=== PATIENT | female | born 2000 | race Asian ===

== ENCOUNTER 2021-06-04 06:21 | Outpatient (REF) | payer OTHER, SELFPAY ==
[2021-06-04 07:02] LABS: MANUAL DIFF FLAG NO
[2021-06-04 07:10] LABS: Basophils Percent Auto 0.5 % (0-2); Eosinophils Absolute Auto 0.2 X10*3/uL (0.0-0.4); Eosinophils Percent Auto 1.9 % (0-4); Hematocrit 38.4 % (37-47); Imm Gran Abs Auto 0.02 X10*3/uL (0.00-0.03); Imm Gran Pct Auto 0.2 % (0.0-0.4); Lymphocytes Absolute Auto 2.9 X10*3/uL (1.2-4.9); Lymphocytes Percent Auto 32.1 % (20-40); Mean Corpuscular HGB Conc 31.3 g/dl (31.0-35.0); Mean Corpuscular Volume 86.5 fL (80-98); Monocytes Absolute Auto 0.6 X10*3/uL (0.1-1.2); Monocytes Percent Auto 6.3 % (2-11); Neutrophils Absolute Auto 5.2 X10*3/uL (2.0-8.3); Platelet Count 332 X10*3/uL (160-400); Red Blood Count 4.44 X10*6/uL (4.20-5.50); Red Cell Distribution Width 12.6 % (11.0-16.0); White Blood Count 8.9 X10*3/uL (4.8-10.8)
[2021-06-04 07:27] LABS: Alanine Aminotransferase 12 U/L (0-31); Albumin Level 4.3 g/dL (3.5-5.0); Alkaline Phosphatase 37 U/L (39-117); Anion Gap 14 (12-20); Aspartate Amino Transferase 16 U/L (5-31); Bilirubin Total 0.5 mg/dL (0.0-1.0); Blood Urea Nitrogen 8 mg/dL (9-16); Calcium 9.7 mg/dL (8.4-10.2); Carbon Dioxide 23 mmol/L (22-29); Chloride 107 mmol/L (96-108); Cholesterol 159 mg/dL; Estimated Glomerular Filt Rate > 60; Glucose Random 93 mg/dL (60-115); HDL Cholesterol 51 mg/dL; LDL Cholesterol Calculated 99 mg/dl; Potassium 4.7 mmol/L (3.3-5.1); Sodium 139 mmol/L (135-145); Total Protein 7.4 g/dL (6.5-8.0); Triglycerides 47 mg/dL
[2021-06-04 07:51] LABS: Free T4 (Free Thyroxine) 0.77 ng/dL (0.71-1.85); HCG Quantitative < 2 mIU/mL; Thyroid Stimulating Hormone 1.91 uIU/mL (0.32-4.0)
[2021-06-04 09:11] LABS: Folate 17.8 ng/mL (> or = 4.0); Vitamin B12 261 pg/mL (200-900)
== END 2021-06-04 06:22 | disposition home or self-care (01) ==
LOC: HO.LAB 06:21
PROVIDERS: PCP Internal Medicine; Visit Provider Internal Medicine
DX: N91.1 Secondary amenorrhea (principal); E04.9 Nontoxic goiter, unspecified; E78.00 Pure hypercholesterolemia, unspecified
CPT/HCPCS: 36415; 80053; 80061; 82607; 82746; 84439; 84443; 84702; 85025

== ENCOUNTER 2021-06-05 11:28 | Outpatient (REF) | payer OTHER, SELFPAY ==
--- NOTE | ~2021-06-05 | US_ITS ---
EXAMINATION: US THYROID CLINICAL INFORMATION: Nontoxic goiter, unspecified. COMPARISON: None TECHNIQUE: Linear transducer grayscale and color Doppler examination with attention to the region of the thyroid. FINDINGS: SIZE: Measurements of the thyroid lobes and nodules are given in sagittal, anteroposterior and transverse dimensions respectively. Right Thyroid Lobe: 4.3 x 1.4 x 1.4 cm, volume 4.21 mL. Parenchyma: The gland echotexture is homogeneous. Thyroid vascularity is normal. Left Thyroid Lobe: 3.8 x 1.2 x 1.3 cm, volume 3.05 mL. Parenchyma: The gland echotexture is homogeneous. Thyroid vascularity is normal. Isthmus: 0.2 cm in maximum AP dimension. No focal thyroid nodule is seen. NODES: No lymphadenopathy is seen in the tissue surrounding the thyroid gland. US/US thyroid IMPRESSION: Normal thyroid ultrasound.
== END 2021-06-05 11:29 | disposition home or self-care (01) ==
LOC: HO.HMGCX 11:28
PROVIDERS: Visit Provider Internal Medicine
DX: E04.9 Nontoxic goiter, unspecified (principal)
CPT/HCPCS: 76536

== ENCOUNTER 2023-05-18 14:33 | Outpatient (REF) | payer OTHER, SELFPAY | END 2023-05-18 14:34 | disposition home or self-care (01) | LOC: HO.XRAY 14:33 | PROVIDERS: PCP Internal Medicine; Visit Provider Internal Medicine | DX: M54.9 Dorsalgia, unspecified (principal) | CPT/HCPCS: 71046 ==

== ENCOUNTER 2024-02-17 15:35 | Outpatient (AMB) | payer OTHER, SELFPAY ==
[2024-02-17 16:12] VITALS: BP 100/64; PULSE 93; TEMP 37.7; O2SAT 100
--- NOTE | 2024-02-17 16:12 | AM.OFFWIN_ITS ---
Intake Vital Signs 3 02/17/24 16:12 Height 5 ft BP 100/64 Blood Pressure Location Lt brachial Position Sitting Pulse 93 Pulse Source Pulse Oximeter Temp 99.9 F Temp Source Oral Pulse Oximetry (%) 100 Oxygen Delivery Method Room Air Intake Visit Reasons: EP Cough, dizzy, nausea, migraine Intake Note: pt is here for cough and congestion since this past weekend and has had migraine and has had nausea and dizzy and trouble sleeping Patient Tobacco Use Status: Never used Tobacco Allergies No Known Allergies Allergy (Verified 02/17/24 16:14) Do you need a note to return to daycare/school/sports/work: Yes HPI HPI Comments 2 History of Present Illness0 Details 24 y/o female patient who presents to [facility] in clinic with c/o persistent headaches since the weekend. Headaches are associated with Nausea, light and sound sensitivity. H/o chronic Migraine headaches, takes Sumatriptan 100 mg PRN. She reports the medication has not helped. She does have an Upcoming Appointment with Neurology in June. During the neck examination, Pt was noticed to have a small Goiter. Pt reports having Thyroid U/S 2020 with benign findings. FOR[facility]LY [facility], [facility] Surgical History (Updated 05/27/21 @ 16:05 by Lupe Granado MD) [place] teeth extracted Family History (Updated 05/18/23 @ 14:06 by Lupe Granado MD) Father Diabetes Hypertension Mother No problems noted. Brother No problems noted. Paternal Grandmother No problems noted. Social History (Updated 05/18/23 @ 14:07 by Lupe Granado MD) Housing: Apartment Alcohol intake: current Patient Tobacco Use Status: Never used Tobacco e-Cigarette/Vaping Use: Never Used Second Hand Smoke Exposure: No service: No Current occupational status: employed Current occupational exposures/hazards: No Cognitive needs: No Hearing needs: No Vision needs: No Review of Systems Const All systems reviewed & are unremarkable except as noted in HPI and below Physical Exam Vital Signs: Last Vital Signs Temp 99.9 F 02/17/24 16:12 Pulse 93 02/17/24 16:12 BP 100/64 02/17/24 16:12 Pulse Ox 100 02/17/24 16:12 Oxygen Delivery Method Room Air 02/17/24 16:12 Const General: comfortable and no acute distress Orientation/consciousness: patient oriented x3 HEENT Head: Yes normocephalic Ears: external ears normal and TM abnormal with fluid behind the TM on the right and on the left General nose exam: No nasal discharge present and Abnormal mucous membranes and turbinates present boggy and erythematous Face and sinus: Yes sinuses nontender Mouth: moist mucous membranes Throat: Yes posterior oropharynx normal Neck Neck: Yes no lymphadenopathy Thyroid: diffusely enlarged (Small goiter palpated. ) Lymphatic: no lymphadenopathy noted Neck images: 2 1. Small Goiter present Resp Effort & Inspection: normal respiratory effort and able to speak in complete sentences Auscultation: clear to auscultation bilaterally, no crackles, no rales, no rhonchi and no wheezes Cardio Rate: regular rate Rhythm: regular rhythm Neuro General: patient oriented x3, gait normal and moves all extremities Psych Speech and movement: Normal speech and movement present Assessment & Plan Assessment & Plan (1) Migraine: Code(s): G43.909 - Migraine, unspecified, not intractable, without status migrainosus Qualifiers: Status migrainosus presence: without status migrainosus Intractability: not intractable Migraine type: unspecified Qualified Code(s): G43.909 - Migraine, unspecified, not intractable, without status migrainosus Plan: - Discussed how to avoid Triggers - Rest in dark and quite room. - Continue taking Sumatriptan as directed. She may add Excedrin Migraine. - Zofran for N/V prevention. - F/U with Neuro as scheduled. Medications: New 2 ondansetron 8 mg PO Q8H 60 tabs 0RF Nausea and vomiting G43.909 - Migraine, unspecified, not intractable, without status migrainosus Coding Level of Care Code Est Pt Level 3 (73838) Diagnoses Migraine without status migrainosus, not intractable, unspecified migraine type G43.909 Status migrainosus presence: without status migrainosus Intractability: not intractable Migraine type: unspecified Time Spent (min) 15
== END 2024-02-17 16:37 | disposition home or self-care (01) ==
PROVIDERS: PCP Internal Medicine; Visit Provider Nurse Practitioner Family
DX: G43.909 Migraine, unspecified, not intractable, without status migrainosus (principal)
CPT/HCPCS: 99213

== ENCOUNTER 2024-06-05 11:09 | Outpatient (AMB) | payer OTHER, SELFPAY ==
[2024-06-05 11:17] VITALS: BP 114/68; PULSE 72; O2SAT 99; BMI 24.0
--- NOTE | 2024-06-05 11:17 | MHC.PC.OV ---
Vital Signs 06/05/24 11:17 Height 5 ft Weight 123 lb BMI 24.0 BP 114/68 Blood Pressure Location Lt brachial Position Sitting Pulse 72 Pulse Source Pulse Oximeter Pulse Oximetry (%) 99 Oxygen Delivery Method Room Air Intake Visit Reasons: Annual Exam Allergies No Known Allergies Allergy (Verified 06/05/24 11:18) Medication List - Last Reconciled 06/05/24 by Lupe Granado MD sumatriptan succinate 100 mg PO .QD PRN Tobacco use date assessed: 06/05/24 Dental Screening Dental Screen Date: 06/05/24 Did you have a dental visit in the last 12 months?: Yes Did you have a dental problem in the last 6 months where you did not have access to dental care?: No Was dental information given to patient?: Patient has dentist HPI Annual Exam HPI Details 24-year-old female with a history of migraine coming in for physical exam last seen in 05/18/2023. Review of the notes March went to the Urgent Center due to migraines was prescribed ondansetron. 1 week L flank pain- [facility] Surgical History (Updated 05/27/21 @ 16:05 by Lupe Granado MD) [place] teeth extracted Family History (Updated 05/18/23 @ 14:06 by Lupe Granado MD) Father Diabetes Hypertension Mother No problems noted. Brother No problems noted. Paternal Grandmother No problems noted. Social History (Updated 06/05/24 @ 12:06 by Lupe Granado MD) Housing: Apartment Alcohol intake: current Comment: once a month1-2 beer Patient Tobacco Use Status: Never used Tobacco Tobacco use type: Cigarette e-Cigarette/Vaping Use: Never Used Second Hand Smoke Exposure: No service: No Current occupational status: employed Current occupational exposures/hazards: No Cognitive needs: No Hearing needs: No Vision needs: No Questionnaire PHQ-9 Over the last 2 weeks, how often have you been bothered by any of the following problems? 1. Little interest or pleasure in doing things: not at all 2. Feeling down, depressed, or hopeless: not at all 3. Trouble falling or staying asleep, or sleeping too much: not at all 4. Feeling tired or having little energy: not at all 5. Poor appetite or overeating: not at all 6. Feeling bad about yourself - or that you are a failure or have let yourself or your family down: not at all 7. Trouble concentrating on things, such as reading the newspaper or watching television: not at all 8. Moving or speaking so slowly that other people could have noticed. Or the opposite - being so fidgety or restless that you have been moving around a lot more than usual: not at all 9. Thoughts that you would be better off or of hurting yourself in some way: not at all Total score: 0 Depression Screening Interpretation: Negative Depression Screening Done: Yes Source: Developed by Drs. Richard Krishnamurthy, Syeda Golden, Yonathan Clark and colleagues, with an educational prasanna from [employer] Thrive Questionnaire Date Thrive assessed: 06/05/24 I am a: Patient What is your living situation today?: I have a steady place to live Within the past 12 months, did the food you bought not last and you didn't have the money to get more?: Never true Within the past 12 months, did you worry whether your food would run out before you got money to buy more?: Never true Do you have trouble paying for medicines?: No Do you have trouble getting transportation to medical appointments?: No Do you have trouble paying your heating and electricity bill?: No Do you have trouble taking care of your child, family member or friend?: No Do you have trouble with day-to-day activities such as bathing, preparing meals, shopping, managing finances, etc.?: No Are you currently unemployed and looking for a job?: No Are you interested in more education?: No Currently or been in a relationship where the following occur: No concerns reported THRIVE Score: 0 AUDIT C Alcohol Use Questionnaire (AUDIT-C) 1. How often do you have a drink containing alcohol?: Never 2. How many drinks containing alcohol do you have on a typical day when you are drinking?: 1 or 2 3. How often do you have six or more drinks on one occasion?: Never Total Score: 0 ELIEL-7 AMB Questionnaire ELIEL-7 Date ELIEL - 7 assessed: 06/05/24 Feeling nervous, anxious, or on edge: 0 = Not at all Not being able to stop or control worryin = Not at all Worrying too much about different things: 0 = Not at all Trouble relaxin = Not at all Being so restless that it is hard to sit still: 0 = Not at all Becoming easily annoyed or irritable: 0 = Not at all Feeling afraid as if something awful might happen: 0 = Not at all Total ELIEL-7 score (0-4 normal; 5-9 mild; 10-14 moderate; 15-21 severe): 0 Source: Developed by Drs. Richard Krishnamurthy, Syeda Golden, Yonathan Clark and colleagues, with an educational prasanna from [employer] Review of Systems Const Denies poor appetite and Denies weakness Eyes Denies no additional complaints ENT Reports Normal hearing present, Denies dizziness, Denies nasal congestion, Denies tinnitus and Denies sore throat Card Denies chest pain, Denies syncope, Denies rapid heart rate and Denies dyspnea Resp Denies cough and Denies dyspnea GI Denies change in stool character, Reports constipation, Denies diarrhea, Denies nausea and Denies vomiting Denies urinary frequency, Denies difficulty voiding and Denies dysuria Neuro Reports Normal hearing present, Denies confusion, Denies dizziness, Denies syncope and Denies weakness Psych Denies confusion Physical exam (Primary Care) Vital Signs: Last Vital Signs Pulse 72 06/05/24 11:17 BP 114/68 06/05/24 11:17 Pulse Ox 99 06/05/24 11:17 Oxygen Delivery Method Room Air 06/05/24 11:17 BMI result Body Mass Index 24.0 Tobacco/Smoking Status: Tobacco use Status Tobacco use date assessed 06/05/24 06/05/24 11:19 Patient Tobacco Use Status Never used Tobacco 06/05/24 11:19 Tobacco use type Cigarette 06/05/24 11:31 e-Cigarette/Vaping Use Never Used 06/05/24 11:19 PHQ-9: PHQ-9 Score PHQ-9: Total score 0 06/05/24 11:39 Depression Screening Interpretation: Negative Thrive Assessment: Date of Thrive Assessment Date Thrive assessed 06/05/24 06/05/24 11:19 Currently or been in a relationship where the following occur: No concerns reported Const General: alert and awake; No confusion Orientation/consciousness: No confusion HENMT Head: Yes normocephalic Ears: external ears normal and TM's normal bilaterally Face and sinus: Yes normal facial exam Mouth: moist mucous membranes Throat: Yes tonsils normal Eyes Conjunctivae: conjunctivae normal Pupils: Equal, round and reactive pupils present and Pupil accommodation reflex normal Direct Ophthalmoscopy: normal light reflex Neck Neck: No lymphadenopathy Thyroid: Thyroid normal Chest Chest palpation & inspection: normal inspection of the chest Resp Effort & Inspection: normal respiratory effort and no audible wheezes Auscultation: clear to auscultation bilaterally, no crackles, no wheezes and lung sounds not diminished Cardio Rate: regular rate Rhythm: regular rhythm Peripheral pulses: radial pulses present and dorsalis pedis present GI Palpation (GI): no masses Auscultation: normal bowel sounds and normoactive bowel sounds Rectal Exam - Female: deferred Skin General skin exam: no rashes or lesions noted Rashes: no rashes Neuro General: deep tendon reflexes 2+ bilaterally and No confusion Cranial nerves: Yes Equal, round and reactive pupils present, Yes Midline tongue present, Yes Normal hearing present and Yes Ability to bilaterally elevate shoulders present Cognition (Neuro): normal cognition Gait exam (Neuro): Normal gait present Motor exam (neuro): 5/5 motor strength present throughout Deep tendon reflexes (DTR's): Right brachioradialis reflex intensity grade: 2+, Left brachioradialis reflex intensity grade: 2+, Right patellar reflex intensity grade: 2+ and Left patellar reflex intensity grade: 2+ Extrem General: No edema Results AMB Urinalysis, Automated UA Leukoctes 125 Pardeep/uL Last Edit by Teena Alston CMA on 06/05/24 11:41 UA Nitrite Negative Last Edit by Teena Alston CMA on 06/05/24 11:41 UA Urobilinogen 0.2 mg/dL Last Edit by Teena Alston CMA on 06/05/24 11:41 UA Protein 0 mg/dL Last Edit by Teena Alston CMA on 06/05/24 11:41 UA pH 6.0 Last Edit by Teena Alston CMA on 06/05/24 11:41 UA Blood 200 Adi/uL Last Edit by Teena Alston CMA on 06/05/24 11:41 UA Specific [place] 1.020 Last Edit by Teena Alston CMA on 06/05/24 11:41 UA Ketone Negative Last Edit by Teena Alston CMA on 06/05/24 11:41 UA Bilirubin 0 mg/dL Last Edit by Teena Alston CMA on 06/05/24 11:41 UA Glucose 0 mg/dL Last Edit by Teena Alston CMA on 06/05/24 11:41 Results Reviewed Results Reviewed: Laboratory Last Values Urine pH (Auto) 6.0 06/05/24 11:39 Specific [place] (Auto) 1.020 06/05/24 11:39 Urine Protein (Auto) 0 mg/dL 06/05/24 11:39 Glucose (UA)(Auto) 0 mg/dL 06/05/24 11:39 Urine Ketones (Auto) Negative 06/05/24 11:39 Urine Blood (Auto) 200 Adi/uL 06/05/24 11:39 Urine Nitrite (Auto) Negative 06/05/24 11:39 Urine Bilirubin (Auto) 0 mg/dL 06/05/24 11:39 Urine Urobilinogen (Auto) 0.2 mg/dL 06/05/24 11:39 Leukocyte Esterase (Auto) 125 Pardeep/uL 06/05/24 11:39 Assessment and Plan Assessment & Plan (1) Annual physical exam: Code(s): Z00.00 - Encounter for general adult medical examination without abnormal findings Plan: Patient is advised to eat healthy, keep well hydrated, keep active and have adequate sleep. (2) Migraine: Code(s): G43.909 - Migraine, unspecified, not intractable, without status migrainosus Qualifiers: Migraine type: unspecified Status migrainosus presence: without status migrainosus Intractability: not intractable Qualified Code(s): G43.909 - Migraine, unspecified, not intractable, without status migrainosus Plan: Patient on sumatriptan to use as needed. (3) Cloudy urine: Code(s): R82.90 - Unspecified abnormal findings in urine (4) UTI (urinary tract infection): Code(s): N39.0 - Urinary tract infection, site not specified Plan: No chances of presently. Antibiotics sent. Discussed concerns about having blood in the urine and not on any menstruation. Complains also left flank pain. Will do a repeat urinalysis 1 week after the last dose of the antibiotic. If persistently having hematuria will work it up question of kidney stones Orders: Orders AMB Urinalysis Automated Today R82.90 - Unspecified abnormal findings in urine AMB Urinalysis Automated Today R82.90 - Unspecified abnormal findings in urine, Z13.9 - Encounter for screening, unspecified UA CC w/rflx Micro + Cult Today N39.0 - Urinary tract infection, site not specified, R30.0 - Dysuria Medications: New nitrofurantoin macrocrystal (Macrodantin) must administer with a meal/food 100 mg PO BID 14 caps 0RF N39.0 - Urinary tract infection, site not specified Coding Level of Care Code Est Pt Prev Care [id number]([id number]) Diagnoses Annual physical exam Z00.00 Migraine without status migrainosus, not intractable, unspecified migraine type G43.909 Migraine type: unspecified Status migrainosus presence: without status migrainosus Intractability: not intractable Cloudy urine R82.90 UTI (urinary tract infection) N39.0
== END 2024-06-05 12:21 | disposition home or self-care (01) ==
PROVIDERS: PCP Internal Medicine; Visit Provider Internal Medicine
DX: Z00.00 Encounter for general adult medical examination without abnormal findings (principal); G43.909 Migraine, unspecified, not intractable, without status migrainosus; R82.90 Unspecified abnormal findings in urine; N39.0 Urinary tract infection, site not specified
CPT/HCPCS: 81003; 99395

== ENCOUNTER 2024-07-11 08:22 | Outpatient (AMB) | payer OTHER, SELFPAY ==
--- NOTE | 2024-07-11 08:25 | MHC.OFFVIS ---
Vital Signs 07/11/24 08:26 Height 5 ft Weight 122 lb 6 oz BMI 23.9 BP 98/60 Blood Pressure Location Rt brachial Position Sitting Respiration 16 Pulse 69 Pulse Source Pulse Oximeter Pulse Oximetry (%) 99 Oxygen Delivery Method Room Air Intake Visit Reasons: INP-Migraine, unspecified-CONF Intake Note: Pt presents to the office for new pt consultation for Migraines. Sales Development Director Required: No Allergies No Known Allergies Allergy (Verified 07/11/24 08:25) Medication List - Last Reconciled 07/11/24 by Jesenia Francisco, DRESSER TENDER sumatriptan succinate 100 mg PO .QD PRN HPI Comments Details: Right-handed 24-yr-old female presents for new pt evaluation of headache disorder. Pt reports she had headache x's the past 4-5 yrs. She has been having stronger attacks that are less responsive to rest and her usual tx plan. PMH and ROS are notable for:? 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 REGULATORY AFFAIRS SPEC: Menses is regular- but may be off by a day or so Family planning: no time soon Pertinent denials include: History of concussion/head injury, Mood d/o, Sleep d/o, Respiratory d/o, CV disease, Clotting or hematology d/o, Endocrine d/o, metabolic d/o, History of seizure, syncope, or drop attacks, GI d/o, Constipation, Leg Cramps, Family history of migraine or other headache disorder Lifestyle considerations: Sleep routine: Usual bedtime: Varies based on work schedule. May wake up at 5:30am and go to bed at 9pm. Sleep difficulties: Denies Caffeine use: an occasional soda, maybe 3 per week- but not specifically for caffeine intake. Substance use: Alcohol- rarely, social Exercise:?physical active at work, walking. 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 In process of applying to PA programs in [place] area. Headache questionnaire:? Previous work-up: None Types of headache disorders: mild headache which can become a migraine Typical headache characteristics: Prodrome symptoms: None Aura: None Pain intensity: severe Location, quality, characteristics: can be unilateral or bilateral frontal-temporal throbbing (sometimes stabbing or pins and needles) pain. Associated symptoms: Mild headache a/w photophobia. Migraine a/w photophobia, phonophobia, fatigue, cognitive difficulties, activity intolerance. Postdrome: rarely will linger Triggers: poor fluid intake, hunger, lights, extreme heat, strong sunlight, sounds, poor sleep, stress. Time of day: No specific time of day Duration and Frequency: Mild headache 1-2 days per week, Migraine 4-5 days per month. Mild headache typically an hour w/ Advil. Migraine 2-3 hrs w/ tx and sleep,. Without tx, the migraine does not end on its own w/o sleep. How does headache impact your life? Has not been able to do her usual activities. Has not had to miss work but has not made able to function well during work. Current acute medication use/interventions: Advil or Tylenol ES 2 tabs, Sumatriptan for migraine- 50-100mg tolerates well, helps but still needs to sleep. Current preventative medication use: None Non-pharmacological interventions: Rest PFSH Surgical History Nahma teeth extracted Family History Father Diabetes Hypertension Mother No problems noted. Brother No problems noted. Paternal Grandmother No problems noted. Social History Housing: Apartment Alcohol intake: current Comment: once a month1-2 beer Patient Tobacco Use Status: Never used Tobacco Tobacco use type: Cigarette e-Cigarette/Vaping Use: Never Used Second Hand Smoke Exposure: No service: No Current occupational status: employed Current occupational exposures/hazards: No Cognitive needs: No Hearing needs: No Vision needs: No Physical Exam Vital Signs: Last Vital Signs Pulse 69 07/11/24 08:26 Resp 16 07/11/24 08:26 BP 98/60 07/11/24 08:26 Pulse Ox 99 07/11/24 08:26 Oxygen Delivery Method Room Air 07/11/24 08:26 BMI result Body Mass Index 23.9 Const Orientation/consciousness: patient oriented x3 Resp Effort & Inspection: normal respiratory effort and able to speak in complete sentences Neuro Other: No palpable scalp tenderness. Left TMJ clicking- pt denies jaw pain. Bilateral posterior cervical tightness. Cervical ROM: full General: patient oriented x3 Cranial nerves: Yes CN's II-XII intact bilaterally Cognition (Neuro): normal cognition Gait exam (Neuro): Normal gait present Motor exam (neuro): 5/5 motor strength present throughout Deep tendon reflexes (DTR's): Right triceps reflex intensity grade: 2+, Left triceps reflex intensity grade: 2+, Rt Biceps (C5, C6): 2+, Left biceps reflex intensity grade: 2+, Right brachioradialis reflex intensity grade: 2+, Left brachioradialis reflex intensity grade: 2+, Right patellar reflex intensity grade: 2+ and Left patellar reflex intensity grade: 2+ Coordination: [id number] test normal, tandem gait normal and Romberg test negative Pupils: Normal pupillary reactivity/response: bilateral Psych Appearance: grossly normal Mental Status: mental status grossly normal Speech and movement: Normal speech and movement present Affect: normal affect Attitude: cooperative Thought process: Normal thought process present Assessment & Plan Assessment & Plan (1) Migraine without aura: Code(s): G43.009 - Migraine without aura, not intractable, without status migrainosus Category: Medical (2) Musculoskeletal back pain: Code(s): M54.9 - Dorsalgia, unspecified Category: Medical Plan No current indication for head imagine. Pt advised to notify us w/ any changes in her migraine s/s. Pt concurs. For overall headache management: Optimize good self-care, including but not limited to maintaining a healthy diet, adequate fluid intake, adequate sleep, and engaging in regular physical activity. Track headaches, especially after any treatment regimen changes. Migraine [employer] is one of many headache tracking apps. Information shared on non-pharmacological interventions which may help to alleviate headache attack burden. For light sensitivity: Patient may benefit from trying blue light filtering glasses, green glasses, green light therapy. For sound sensitivity: Patent may benefit from trying noise cancellation ear plugs. Neuromodulation devices, which can be used alone or with pharmacological treatment. Consider trial of OTC mouth guard Add stretching, increased ROM exercises, such as yoga, pilates, etc. For acute headache treatment: Discussed importance of taking acute medications at the first sign of headache. Hold Sumatriptan 100mg- not fully effective. Advil 400mg prn mild headache Tylenol ES 500mg 2 tabs prn mild headache. Trial Rizatriptan 10mg tab, 1/2 - 1 tab (5-10mg) at onset of headache, may repeat in 2 hours. Max of 2 tabs (200mg) per 24 hours. May adjunct with OTC Tylenol 1000mg or Advil 400mg prn. Potential adverse effects of triptans, including but not limited to nausea, fatigue, chest tightness/tingling (usually passes within a few minutes), medication overuse headaches. Previous acute migraine medication trials: , Sumatriptan for migraine- 50-100mg tolerates well, helps but still needs to sleep Acute migraine medication contraindications: None at this time For headache prevention medication: Preventative medications should be taken routinely as prescribed for best effect, it may take several weeks for full effect to take effect. Pt would like to start w/ trying nutraceutical options first. Start Riboflavin 400mg qam Start Magnesium 400mg qhs Previous migraine prevention medication trials: None Migraine prevention medication contraindications: None at this time Pt to follow-up in 6 months or sooner prn. Medications: New magnesium oxide may hold for loose stools 400 mg PO BEDTIME 30 days 30 tabs 6RF riboflavin (vitamin B2) 400 mg PO DAILY 30 days 30 tabs 6RF rizatriptan max 2 tabs per day or 4 tabs per week 10 mg PO Q2H 21 days PRN 12 tabs 3RF migraine headache Coding Level of Care Code New Pt Level 4 (20814) Diagnoses Migraine without aura G43.009 Musculoskeletal back pain M54.9
[2024-07-11 08:26] VITALS: BP 98/60; PULSE 69; RESP 16; O2SAT 99; BMI 23.9
== END 2024-07-11 09:37 | disposition home or self-care (01) ==
PROVIDERS: PCP Internal Medicine; Visit Provider Nurse Practitioner Family
DX: G43.009 Migraine without aura, not intractable, without status migrainosus (principal); M54.9 Dorsalgia, unspecified
CPT/HCPCS: 99204

== ENCOUNTER → 2024-07-11 08:22 | Outpatient (BNVA) | payer OTHER, SELFPAY | PROVIDERS: PCP Internal Medicine; Visit Provider Nurse Practitioner Family | DX: G43.009 Migraine without aura, not intractable, without status migrainosus (principal); M54.9 Dorsalgia, unspecified | CPT/HCPCS: 99202 ==

== ENCOUNTER 2024-08-30 14:02 | Outpatient (REF) | payer OTHER, SELFPAY ==
[2024-08-31 08:59] LABS: HBS Num1 0.76 mIU/mL (0-7.99); HBc Num1 0.13 S/CO (0.00-0.79); HBsAGNum1 0.43 S/CO (0.00-0.99); Hepatitis B Core Antibody Nonreactive (Nonreactive); Hepatitis B Surface Antigen Negative (Negative); ~HepC Num1 0.11 S/CO (0.00-0.79); ~Hepatitis B Surface Antibody NONREACTIVE (Nonreactive); ~Hepatitis C Antibody Nonreactive (Nonreactive)
[2024-08-31 21:33] LABS: Rubella IgG Antibody 6.44 Index; Rubeola IgG (Measles) >300.00 AU/mL; Varicella IgG Antibody 9.27 S/CO
[2024-09-02 00:34] LABS: TS Negative Control Passed; TS Panel A 1; TS Panel B 0; TS Positive Control Passed; TSpotTB Negative (Negative)
== END 2024-08-30 14:03 | disposition home or self-care (01) ==
LOC: HO.LAB 14:02
PROVIDERS: PCP Internal Medicine; Visit Provider Internal Medicine
DX: Z02.0 Encounter for examination for admission to educational institution (principal); R79.89 Other specified abnormal findings of blood chemistry; R30.0 Dysuria
CPT/HCPCS: 36415; 86481; 86704; 86706; 86735; 86762; 86765; 86787; 86803; 87340

== ENCOUNTER 2024-09-11 14:42 | Outpatient (AMB) | payer OTHER, SELFPAY ==
--- NOTE | 2024-09-11 15:09 | AM.OFFVISNUR ---
Intake Visit Reasons: tdap vaccine Allergies No Known Allergies Allergy (Verified 07/11/24 08:25) Assessment & Plan Assessment & Plan Orders: Orders TDaP Immunization Today Z23 - Encounter for immunization Medications: New Boostrix Tdap (diphth,pertus(acell),tetanus) 0.5 mL IM ONCE 0.5 mL 0RF immunization due NS Z23 - Encounter for immunization
== END 2024-09-11 15:24 | disposition home or self-care (01) ==
PROVIDERS: PCP Internal Medicine; Visit Provider Internal Medicine
DX: Z23 Encounter for immunization (principal)

== ENCOUNTER → 2024-09-11 14:42 | Outpatient (BNVA) | payer OTHER, SELFPAY | PROVIDERS: PCP Internal Medicine; Visit Provider Internal Medicine | DX: Z23 Encounter for immunization (principal) | CPT/HCPCS: 90471; 90715 ==

== ENCOUNTER 2024-09-26 11:44 | Outpatient (AMB) | payer OTHER, SELFPAY ==
--- NOTE | 2024-09-26 12:10 | AM.OFFVISNUR ---
Intake Visit Reasons: hep b Allergies No Known Allergies Allergy (Verified 07/11/24 08:25) Assessment & Plan Assessment & Plan Orders: Orders Hepatitis B Adult Immunization Today Z23 - Encounter for immunization Medications: New Recombivax HB (PF) (hepatitis B virus vacc.rec(PF)) 1.0 mL IM ONCE 1 mL 0RF immunization due NS Z23 - Encounter for immunization
== END 2024-09-26 12:13 | disposition home or self-care (01) ==
LOC: HO.HMCH 11:45
PROVIDERS: PCP Internal Medicine; Visit Provider Internal Medicine
DX: Z23 Encounter for immunization (principal)

== ENCOUNTER → 2024-09-26 11:44 | Outpatient (BNVA) | payer OTHER, SELFPAY | PROVIDERS: PCP Internal Medicine; Visit Provider Internal Medicine | DX: Z23 Encounter for immunization (principal) | CPT/HCPCS: 90471; 90746 ==

== ENCOUNTER 2024-10-24 11:48 | Outpatient (AMB) | payer OTHER, SELFPAY ==
--- NOTE | 2024-10-24 12:03 | AM.OFFVISNUR ---
Intake Visit Reasons: hep b Allergies No Known Allergies Allergy (Verified 07/11/24 08:25) Immunizations Recombivax HB (PF) 10 mcg/mL intramuscular suspension Performing Provider: Lupe Granado MD [facility] [place] [facility] Administered by: Deena Funez LPN on 10/24/24 12:03 Dose Route Admin Location Dispensed Lot Number Expiration Date [facility] Special Diet Cook 1 mL IM Left Deltoid 1 mL [id number] 08/28/26 79822-308-54 [employer] VIS Given Date VIS Provided VIS Publication Date 10/24/24 Single Vaccine 23 Eligibility Eligibility Date Funding Source Not [facility] Eligible 10/24/24 Private Assessment & Plan Assessment & Plan Orders: Orders Hepatitis B Adult Immunization Today Z23 - Encounter for immunization Medications: New Recombivax HB (PF) (hepatitis B virus vacc.rec(PF)) 1.0 mL IM ONCE 1 mL 0RF immunization due NS Z23 - Encounter for immunization
== END 2024-10-24 12:04 | disposition home or self-care (01) ==
PROVIDERS: PCP Internal Medicine; Visit Provider Internal Medicine
DX: Z23 Encounter for immunization (principal)

== ENCOUNTER → 2024-10-24 11:48 | Outpatient (BNVA) | payer OTHER, SELFPAY | PROVIDERS: PCP Internal Medicine; Visit Provider Internal Medicine | DX: Z23 Encounter for immunization (principal) | CPT/HCPCS: 90471; 90746 ==